=== PATIENT | female | born 2005 | race African-American/Black ===

== ENCOUNTER 2025-04-17 20:59 | Emergency (ER) | payer SELFPAY ==
[~2025-04-17] VITALS: Ht 170.2 cm; Wt 56.7 kg
[2025-04-17] MEDS ORDERED: GUAIFENESIN/CODEINE 10 ML UDC ONE (23:54)
[2025-04-17] MEDS: GUAIFENESIN/CODEINE 10 ML UDC PO PRN (23:55)
[2025-04-18] MEDS ORDERED: GUAI237L83 PO (00:01)
[2025-04-18 01:25] VITALS: BP 122/70; TEMP 97.7; O2SAT 100
== END 2025-04-18 01:26 | disposition home or self-care (01) ==
LOC: ER 21:06
DX: R05.9 Cough, unspecified (principal); B34.9 Viral infection, unspecified; Z88.0 Allergy status to penicillin; Z20.822 Contact with and (suspected) exposure to COVID-19
CPT/HCPCS: 71045-TC